=== PATIENT | female | born 1965 | race Hispanic/Latino ===

== ENCOUNTER → 2025-05-05 | Outpatient (CLI) | payer BC, OTHER ==
--- NOTE | 2025-05-05 10:22 | HMCIMG ---
Examination Hepatobiliary study History RUQ PAIN 60 YEAR OLD FEMALE OUTPATIENT PATIENT HX: RUQ PAIN ORDER Technique 7 mCi Tc-99m mebrofenin were administered intravenously followed by acquisition of planar images of the abdomen. Findings Following administration of radiotracer, there is prompt appearance of normal hepatic contours, followed by appearance of activity in unremarkable appearing bile ducts. There is prompt filling of the gallbladder. The study is negative for acute cholecystitis. Normal ejection fraction of 66 percentile. IMPRESSION: Negative HIDA study. No evidence of cholecystitis. /[place]
== END | disposition home or self-care (01) ==
LOC: RAH 07:14
PROVIDERS: ATTEND Internal Medicine Gastroenterology
DX: R10.11 Right upper quadrant pain (principal)
CPT/HCPCS: 78227; A9537